=== PATIENT | female | born 1970 | race Caucasian/White ===

== ENCOUNTER 2025-05-04 22:56 | Emergency (ER) | payer BC ==
[2025-05-04] MEDS ORDERED: Ketorolac Tromethamine 30 MG (1 mL) VIAL ONE (23:28)
== END 2025-05-05 | disposition home or self-care (01) ==
LOC: MADERS 22:56
DX: R68.84 Jaw pain (principal); I10 Essential (primary) hypertension; Z79.899 Other long term (current) drug therapy
CPT/HCPCS: 96372; 99283; J1885